=== PATIENT | male | born 1995 | race Native Hawaiian/Other Pacific Islander ===

== ENCOUNTER 2018-04-14 19:32 | Emergency (ER) | payer SELFPAY ==
[2018-04-14 19:38] VITALS: BP 165/99; PULSE 93; RESP 16; TEMP 98; O2SAT 99
--- NOTE | 2018-04-14 20:16 | ED PDOC ---
HPI: Skin/Bite Injury Time Seen by Provider: 04/14/18 19:56 Chief Complaint (Nursing): Bite Chief Complaint (Provider): Dog Bite History Per: Patient History/Exam Limitations: no limitations Onset/Duration Of Symptoms: Days Current Symptoms Are (Timing): Still Present Location Of Injury: Left: Thigh Additional Complaint(s): 22 year old male presents to the ED for evaluation of a dog bite on left thigh. Patient was walking when dog bit him. job trainer told patient that dog is up to date with vaccinations and this was confirmed by dog animation camera operator. Patient is up to date with tetanus. PMD: none Past Medical History Reviewed: Historical Data, Nursing Documentation, Vital Signs Vital Signs: Last Vital Signs Temp 98.0 F 04/14/18 19:34 Pulse 93 H 04/14/18 19:34 Resp 16 04/14/18 19:34 BP 165/99 H 04/14/18 19:34 Pulse Ox 99 04/14/18 20:44 - Medical History PMH: No Chronic Diseases - Surgical History Surgical History: No Surg Hx - Family History Family History: States: No Known Family Hx - Living Arrangements Living Arrangements: With Friends/Others - Social History Current smoker - smoking cessation education provided: No Alcohol: None Drugs: Denies - Immunization History Hx Tetanus Toxoid Vaccination: Yes - Home Medications Home Medications: Ambulatory Orders Medication Instructions Recorded Amoxicillin/Clavulanate [Augmentin 1 tab PO BID #14 tab 04/14/18 875 MG-125 MG] - Allergies Allergies/Adverse Reactions: Allergies Allergy/AdvReac Type Severity Reaction Status Date / Time No Known Allergies Allergy Verified 04/14/18 19:34 Review of Systems ROS Statement: Except As Marked, All Systems Reviewed And Found Negative Musculoskeletal: Positive for: Leg Pain (left thigh pain secondary to dog bite) Physical Exam - Reviewed Nursing Documentation Reviewed: Yes Vital Signs Reviewed: Yes - Physical Exam Appears: Positive for: Well, Non-toxic, No Acute Distress Head Exam: Positive for: ATRAUMATIC, NORMAL INSPECTION, NORMOCEPHALIC Skin: Positive for: Normal Color. Negative for: Rash Eye Exam: Positive for: Normal appearance Extremity: Positive for: Other (Superficial abrasion on anterior left thigh with adjacent superficial puncture wound noted, no active bleeding, full range of motion of left hip, knee and ankle with normal distal sensation to left lower extremity) Neurologic/Psych: Positive for: Alert, Oriented (x3) - ECG O2 Sat by Pulse Oximetry: 99 (RA) Pulse Ox Interpretation: Normal Medical Decision Making Medical Decision Making: Time: 2033 Initial Impression: 22 year old male with dog bit on left thigh Initial Plan: --Amoxicillin/Clavulanate 1 tab Dog is up-to-date with all vaccinations and patient is up-to-date with tetanus. Wound was cleansed with normal saline and Betadine and dressed with bacitracin and bandage. Patient given prescription for Augmentin along with initial dosing ED. Advised NSAIDs for pain and wound recheck in 2-3 days. Scribe Attestation: Documented by Jazmyne Bui, acting as a scribe for Krys Snider PA-C Provider Scribe Attestation: All medical record entries made by the Scribe were at my direction and personally dictated by me. I have reviewed the chart and agree that the record accurately reflects my personal performance of the history, physical exam, medical decision making, and the department course for this patient. I have also personally directed, reviewed, and agree with the discharge instructions and disposition. Disposition - Clinical Impression Clinical Impression: Animal bite wound - Patient ED Disposition Is Patient to be Admitted: No Counseled Patient/Family Regarding: Diagnosis, Need For Followup, Rx Given - Disposition Referrals: [facility] [Outside] Disposition: Routine/Home Disposition Time: 20:54 Condition: STABLE Additional Instructions: Wash wound daily with soap and water and apply neosporin once per day. Take antibiotics as directed. Over the counter advil as needed for pain. Wound re- check in 2-3 days. Prescriptions: Amoxicillin/Clavulanate [Augmentin 875 MG-125 MG] 1 tab PO BID #14 tab Instructions: Animal Bites (DC) Forms: [email or web address] (Pashto)
[2018-04-14] MEDS ORDERED: Amoxicillin-Clav 875-125 mg Tab PO STA (20:34)
[2018-04-14] MEDS ORDERED: Amoxicillin-Clav 875-125 mg Tab PO ONE (20:55)
== END 2018-04-14 20:57 | disposition home or self-care (01) ==
LOC: H.ER 19:32
DX: S71.132A Puncture wound without foreign body, left thigh, initial encounter (principal); W54.0XXA Bitten by dog, initial encounter; Y92.89 Other specified places as the place of occurrence of the external cause

== ENCOUNTER 2018-04-16 17:42 | Emergency (ER) | payer OTHER ==
[2018-04-16 18:14] VITALS: RESP 18
[2018-04-16] MEDS ORDERED: Rabies Immune Globulin 150 INTLU/ML VIAL IM STA (18:35)
--- NOTE | 2018-04-16 18:35 | ED PDOC ---
HPI: General Adult Time Seen by Provider: 04/16/18 18:19 Chief Complaint (Nursing): Bite Chief Complaint (Provider): dog bite History Per: Patient Additional Complaint(s): 22-year-old male presents to emergency department requesting rabies vaccine. He was here 2 days ago for dog bite and spoke with dog's fork truck driver who states that vaccinations for animal are up-to-date. Patient was not given copy of records and presents today requesting rabies vaccine series just to be sure. Patient knows where the animal and fork truck driver live and did ask fork truck driver to provide copy of vaccine records which fork truck driver is in the process of doing. Patient still, however , wants the rabies vaccine series. PMD: none Past Medical History Reviewed: Historical Data, Nursing Documentation, Vital Signs Vital Signs: Last Vital Signs Temp 98.1 F 04/16/18 18:11 Pulse 63 04/16/18 18:11 Resp 18 04/16/18 18:11 BP 128/80 04/16/18 18:11 Pulse Ox 99 04/16/18 18:38 - Medical History PMH: No Chronic Diseases - Surgical History Surgical History: No Surg Hx - Family History Family History: States: No Known Family Hx - Living Arrangements Living Arrangements: With Friends/Others - Social History Current smoker - smoking cessation education provided: No Alcohol: None Drugs: Denies - Immunization History Hx Tetanus Toxoid Vaccination: Yes - Home Medications Home Medications: Ambulatory Orders Medication Instructions Recorded Amoxicillin/Clavulanate [Augmentin 1 tab PO BID #14 tab 04/14/18 875 MG-125 MG] - Allergies Allergies/Adverse Reactions: Allergies Allergy/AdvReac Type Severity Reaction Status Date / Time No Known Allergies Allergy Verified 04/16/18 18:10 Review of Systems ROS Statement: Except As Marked, All Systems Reviewed And Found Negative Constitutional: Negative for: Fever Skin: Positive for: Other (dog bite left leg) Physical Exam - Reviewed Nursing Documentation Reviewed: Yes Vital Signs Reviewed: Yes - Physical Exam Appears: Positive for: Well, Non-toxic, No Acute Distress Skin: Positive for: Normal Color. Negative for: Rash Eye Exam: Positive for: Normal appearance Extremity: Positive for: Other (healing wound left anterior thigh, no infection noted) Neurologic/Psych: Positive for: Alert, Oriented - ECG O2 Sat by Pulse Oximetry: 99 Pulse Ox Interpretation: Normal Medical Decision Making Medical Decision Makin22 y/o M requesting rabies vaccine Plan: rabies IM vaccine Weight based immunoglobulin IM dose Patient was given schedule for remainder of vaccines in series. Disposition - Clinical Impression Clinical Impression: Need for rabies vaccination, Animal bite wound - Patient ED Disposition Is Patient to be Admitted: No Counseled Patient/Family Regarding: Need For Followup - Disposition Referrals: [facility] [Outside] Disposition: Routine/Home Disposition Time: 19:31 Condition: STABLE Additional Instructions: Return to ED according to vaccine schedule. Instructions: Rabies Vaccine, Rabies Immune Globulin (Human) Forms: [employer] (Serbian)
[2018-04-16 23:55] VITALS: BP 116/70; PULSE 76; TEMP 97.8; O2SAT 100
== END 2018-04-16 23:55 | disposition home or self-care (01) ==
LOC: H.ER 17:42
DX: Z29.14 Encounter for prophylactic rabies immune globulin (principal)

== ENCOUNTER 2018-04-19 17:57 | Emergency (ER) | payer OTHER ==
[2018-04-19 18:05] VITALS: BP 134/80; PULSE 74; RESP 16; TEMP 98.6; O2SAT 99
--- NOTE | 2018-04-19 18:22 | ED PDOC ---
HPI: General Adult Time Seen by Provider: 04/19/18 18:10 Chief Complaint (Nursing): Rabies Vaccine Series Chief Complaint (Provider): Rabies Vaccine Day 3 History Per: Patient History/Exam Limitations: no limitations Onset/Duration Of Symptoms: Days (three) Current Symptoms Are (Timing): Better Severity: None Recent Trauma: bit on left thigh by a stray dog Recently: Seen In ED Past Medical History Reviewed: Historical Data, Nursing Documentation, Vital Signs Vital Signs: Last Vital Signs Temp 98.6 F 04/19/18 18:03 Pulse 74 04/19/18 18:03 Resp 16 04/19/18 18:03 BP 134/80 04/19/18 18:03 Pulse Ox 99 04/19/18 18:03 - Family History Family History: States: Unknown Family Hx - Immunization History Hx Tetanus Toxoid Vaccination: Yes - Home Medications Home Medications: Ambulatory Orders Medication Instructions Recorded Amoxicillin/Clavulanate [Augmentin 1 tab PO BID #14 tab 04/14/18 875 MG-125 MG] - Allergies Allergies/Adverse Reactions: Allergies Allergy/AdvReac Type Severity Reaction Status Date / Time No Known Allergies Allergy Verified 04/16/18 18:10 Review of Systems ROS Statement: Except As Marked, All Systems Reviewed And Found Negative Skin: Positive for: Other (resolving puncture wound left thigh) Physical Exam - Reviewed Nursing Documentation Reviewed: Yes Vital Signs Reviewed: No - Physical Exam Appears: Positive for: Well, Non-toxic, No Acute Distress. Negative for: Uncomfortable Head Exam: Positive for: ATRAUMATIC, NORMAL INSPECTION, NORMOCEPHALIC Skin: Positive for: Normal Color, Warm, Dry Eye Exam: Positive for: Normal appearance. Negative for: Nystagmus, Periorbital swelling, Periorbital tenderness Neck: Positive for: Normal, Painless ROM, Supple. Negative for: Decreased ROM Cardiovascular/Chest: Positive for: Regular Rate, Rhythm Respiratory: Positive for: Normal Breath Sounds Pulses-Carotid (L): 2+ Pulses-Carotid (R): 2+ Pulses-Radial (L): 2+ Pulses-Radial (R): 2+ - ECG O2 Sat by Pulse Oximetry: 99 Medical Decision Making Medical Decision Making: I: rabies vaccine, Day 3 P: 2.5 units rabavert rED on Day 7, ThursdayApril 23 Disposition - Clinical Impression Clinical Impression: Rabies, need for prophylactic vaccination against - Patient ED Disposition Is Patient to be Admitted: No Doctor Will See Patient In The: ED Counseled Patient/Family Regarding: Diagnosis, Need For Followup - Disposition Disposition: Routine/Home Disposition Time: 18:22 Condition: STABLE Additional Instructions: Return Day - April for third vaccine Instructions: Rabies (DC), Rabies Vaccine
== END 2018-04-19 19:19 | disposition home or self-care (01) ==
LOC: H.ER 17:57
DX: Z29.14 Encounter for prophylactic rabies immune globulin (principal)

== ENCOUNTER 2018-04-23 20:54 | Emergency (ER) | payer OTHER ==
[2018-04-23 21:21] VITALS: BP 154/86; PULSE 87; RESP 16; TEMP 98.8; O2SAT 100
--- NOTE | 2018-04-23 21:35 | ED PDOC ---
HPI: General Adult Time Seen by Provider: 04/23/18 21:33 Chief Complaint (Nursing): Rabies Vaccine Series Chief Complaint (Provider): Rabies Vaccine Series History Per: Patient History/Exam Limitations: no limitations Current Symptoms Are (Timing): Better Additional History Per: Prior Records Additional Complaint(s): 22-year-old male presents to ED for Day 7 of rabies vaccine. Patient reports he was walking when a dog bit him on the left thigh. pump service supervisor was walking dog during the time. Patient is up-to-date with tetanus. PMD: None Past Medical History Vital Signs: Last Vital Signs Temp 98.8 F 04/23/18 21:20 Pulse 87 04/23/18 21:20 Resp 16 04/23/18 21:20 BP 154/86 H 04/23/18 21:20 Pulse Ox 100 04/23/18 21:49 - Family History Family History: States: Unknown Family Hx - Immunization History Hx Tetanus Toxoid Vaccination: Yes - Home Medications Home Medications: Ambulatory Orders Medication Instructions Recorded Amoxicillin/Clavulanate [Augmentin 1 tab PO BID #14 tab 04/14/18 875 MG-125 MG] - Allergies Allergies/Adverse Reactions: Allergies Allergy/AdvReac Type Severity Reaction Status Date / Time No Known Allergies Allergy Verified 04/16/18 18:10 Physical Exam - Reviewed Nursing Documentation Reviewed: Yes Vital Signs Reviewed: Yes - Physical Exam Extremity: Positive for: Other ((+) Superficial laceration to left thigh healing well) - ECG O2 Sat by Pulse Oximetry: 100 (RA) Pulse Ox Interpretation: Normal Medical Decision Making Medical Decision Making: Time: 21:28 Plan: - Rabavert Vaccine Inj Scribe Attestation: Documented by Kyle Ross, acting as a scribe for Juju Herrera PA-C. Provider Scribe Attestation: All medical record entries made by the Scribe were at my direction and personally dictated by me. I have reviewed the chart and agree that the record accurately reflects my personal performance of the history, physical exam, medical decision making, and the department course for this patient. I have also personally directed, reviewed, and agree with the discharge instructions and disposition. Disposition - Clinical Impression Clinical Impression: Need for rabies vaccination - Patient ED Disposition Is Patient to be Admitted: No - Disposition Disposition: Routine/Home Disposition Time: 21:35 Condition: FAIR Instructions: Rabies Vaccine Forms: [employer] ([place] Islander)
== END 2018-04-23 21:47 | disposition home or self-care (01) ==
LOC: H.ER 20:54
DX: Z23 Encounter for immunization (principal)